=== PATIENT | female | born 1995 | race Two or more races ===

== ENCOUNTER 2024-05-22 11:11 | Observation (INO) | payer MEDICAID, SELFPAY ==
[2024-05-22 11:20] VITALS: BMI 31.8
[2024-05-22 11:25] VITALS: BP 108/62; PULSE 78
[2024-05-22 12:05] VITALS: TEMP 37.1
== END 2024-05-22 12:12 | disposition home or self-care (01) ==
PROVIDERS: Admitting Provider Obstetrics & Gynecology; Visit Provider Obstetrics & Gynecology
DX: O26.893 Other specified pregnancy related conditions, third trimester (principal); M54.50 Low back pain, unspecified; Z3A.34 34 weeks gestation of pregnancy
CPT/HCPCS: 59025; 59899; G0378